=== PATIENT | female | born 1990 | race American Indian/Alaskan Native ===

== ENCOUNTER 2022-12-04 09:23 | Emergency (ER) | payer MEDICAID ==
[2022-12-04] MEDS ORDERED: Penicillin G Benzathine/Procaine 600-600 1.2 Millunits/2 ML Syringe IM ONE (09:59)
== END 2022-12-04 10:23 | disposition home or self-care (01) ==
LOC: DL.ED 09:23
DX: J02.0 Streptococcal pharyngitis (principal); Z88.1 Allergy status to other antibiotic agents; Z88.2 Allergy status to sulfonamides
CPT/HCPCS: 87430; 96372; 99282; 99283; J0558